=== PATIENT | female | born 1955 | race Caucasian/White ===

== ENCOUNTER → 2017-09-12 09:54 | Outpatient (CLI) | payer BC, SELFPAY ==
--- NOTE | 2017-09-12 09:59 | MM_ITS ---
MM Dig screening mamm BI w/CAD CAD Screening COMPARISON: Digital mammograms 08/06/2011 and 04/02/2014 INDICATION: There is a history of breast cancer patient maternal grandmother TECHNIQUE: Standard CC and MLO images were obtained. R2 CAD reviewed. FINDINGS: Prominent diffuse heterogenic fibroglandular densities are seen throughout both breasts somewhat lessening the sensitivity of mammography and the findings are bilateral and symmetrical. There are multiple benign-appearing calcifications in each breast many which appear to be typical of sclerosing adenosis. In addition there are multiple cutaneous calcifications as well there is no suspicious lesion and there are no suspicious microcalcifications. IMPRESSION: Stable dense and heterogenic parenchymal pattern with no suspicious lesion seen BI-RADS Category: 2 Benign Finding(s) RECOMMENDED FOLLOW-UP: 1YR - 1 YEAR FOLLOW-UP (A letter has been sent to the patient regarding results of the study.)
== END ==
PROVIDERS: Family Provider Nurse Practitioner Family; PCP Internal Medicine Adolescent Medicine; Visit Provider Nurse Practitioner Family
DX: Z12.31 Encounter for screening mammogram for malignant neoplasm of breast (principal)
CPT/HCPCS: 77067

== ENCOUNTER → 2017-09-23 11:07 | Outpatient (CLI) | payer BC, SELFPAY ==
--- NOTE | 2017-09-23 11:10 | XR_ITS ---
XR DEXA axial skeleton HISTORY: ITS.REASON: POST MENOPAUSAL ORDERING PHYSICIAN: Segun Villalobos MD PATIENT AGE: 62 years COMPARISON: None FINDINGS: The BMD measured at the left femoral neck is 1.004 g/cm squared with a T score of -0.2 . This is considered normal according to the World Health Organization criteria. Fracture risk is low. Recommend follow-up exam September 2019.. The L1-L4 density has a T score of 0.5 which is within normal limits. IMPRESSION: Normal bone density
== END ==
PROVIDERS: Family Provider Nurse Practitioner Family; PCP Internal Medicine Adolescent Medicine; Visit Provider Internal Medicine Adolescent Medicine
DX: Z78.0 Asymptomatic menopausal state (principal)
CPT/HCPCS: 77080

== ENCOUNTER → 2018-12-24 09:07 | Outpatient (CLI) | payer BC, SELFPAY ==
[2018-12-24 10:23] LABS: Alanine Aminotransferase 33 U/L (12-78); Albumin Level 3.7 gm/dL (3.4-5.0); Albumin/Globulin Ratio 1.2 (1.1-1.8); Alkaline Phosphatase 103 U/L (46-116); Anion Gap 11.6 mEq/L (5-15); Aspartate Amino Transferase 18 U/L (15-37); Bilirubin,Total 0.4 mg/dL (0.2-1.0); Blood Urea Nitrogen 18 mg/dL (7-18); Calcium 8.6 mg/dL (8.5-10.1); Carbon Dioxide 30 mmol/L (21.0-32.0); Chloride 106 mmol/L (98-107); Chol/HDL Ratio 3.2 (1-3.5); Cholesterol 142 mg/dL (140-200); Creatinine,Serum 0.71 mg/dL (0.55-1.02); Estimated Glomerular Filt Rate 83 ml/min (>60); GFR (African American) 101 ML/MIN (>60); Globulin 3.2 gm/dl (1.3-3.2); Glucose 88 mg/dL (74-106); HDL Cholesterol 45 mg/dL (29-89); LDL Cholesterol 84 mg/dL (0-130); Potassium 4.6 mmoL/L (3.5-5.1); Sodium 143 mmol/L (136-145); Total Protein,Serum 6.9 gm/dL (6.4-8.2); Triglycerides 63 mg/dL (30-200); VLDL Cholesterol 13 mg/dL (0-40)
== END ==
PROVIDERS: Visit Provider Nurse Practitioner Family
DX: Z00.00 Encounter for general adult medical examination without abnormal findings (principal); I10 Essential (primary) hypertension
CPT/HCPCS: 36415; 80053; 80061

== ENCOUNTER → 2019-01-19 16:43 | Outpatient (CLI) | payer BC, SELFPAY ==
--- NOTE | 2019-01-19 16:45 | MM_ITS ---
MM Dig screening mamm BI w/CAD CAD Screening COMPARISON: Digital mammograms with CAD 09/12/2017 and 04/02/2014 INDICATION: There is a history of breast cancer in patient's paternal grandmother TECHNIQUE: Standard CC and MLO images were obtained. R2 CAD reviewed. FINDINGS: Moderate diffuse fibro glandular densities are seen in central portions of both breast and the findings are bilateral and symmetrical. There are 2 mole markers left breast. There are scattered benign-appearing microcalcifications is in each breast. There is no suspicious lesion and there are no suspicious microcalcifications. IMPRESSION: Moderate breast density with no suspicious lesion seen BI-RADS Category: 2 Benign Finding(s) RECOMMENDED FOLLOW-UP: 1YR - 1 YEAR FOLLOW-UP (A letter has been sent to the patient regarding results of the study.)
== END ==
PROVIDERS: PCP Nurse Practitioner Family; Visit Provider Nurse Practitioner Family
DX: Z12.31 Encounter for screening mammogram for malignant neoplasm of breast (principal)
CPT/HCPCS: 77067

== ENCOUNTER → 2020-08-20 07:37 | Outpatient (CLI) | payer BC, SELFPAY ==
[2020-08-20 10:20] LABS: Alanine Aminotransferase 25 U/L (12-78); Albumin/Globulin Ratio 1.5 (1.1-1.8); Alkaline Phosphatase 84 U/L (38-126); Anion Gap 14.9 mEq/L (5-15); Aspartate Amino Transferase 33 U/L (14-36); Bilirubin,Total 0.8 mg/dl (0.2-1.3); Blood Urea Nitrogen 11 mg/dl (7-17); Carbon Dioxide 33 mmol/L (22.0-30.0); Chloride 99 mmol/L (98-107); Chol/HDL Ratio 2.9 (1-3.5); Cholesterol 164 mg/dl (140-200); Estimated Glomerular Filt Rate 72 ml/min (>60); GFR (African American) 87 ML/MIN (>60); Globulin 3.4 g/dL (1.3-3.2); Glucose 78 mg/dl (74-100); HDL Cholesterol 57 mg/dl (40-60); Potassium 3.9 mmoL/L (3.5-5.1); Sodium 143 mmol/L (136-145); Total Protein,Serum 8.4 g/dl (6.3-8.2); Triglycerides 85 mg/dl (30-150); VLDL Cholesterol 17 mg/dL (0-40)
[2020-08-20 10:31] LABS: Direct LDL Cholesterol 69.43 mg/dL (100-129)
== END ==
PROVIDERS: Visit Provider Nurse Practitioner Family
DX: I10 Essential (primary) hypertension (principal)
CPT/HCPCS: 36415; 80053; 80061

== ENCOUNTER → 2020-08-23 16:20 | Outpatient (CLI) | payer BC, SELFPAY ==
--- NOTE | 2020-08-23 16:24 | MM_ITS ---
PROCEDURE: MM DIG SCREENING MAMM BI W/CAD Referring Doctor: Josette Vega Patient Age:65Y CLINICAL INDICATION: SCREENING 65-year-old, no hormones, no new complaints Family history: Paternal grandmother; and niece with breast cancer COMPARISON: MG DIGMAMMS MAMMOGRAM SCREEN-ROVING CARRIER N/C from 09/13/2009 MG DMSB DIGITAL MAMM-SCREEN BILATERAL from 08/06/2011 MG DMSB DIG MAMM-SCREEN ADONAY from 04/02/2014 MG SCBI MM Dig screening mamm BI w/CAD from 09/12/2017 MG DIG MAMM-SCREEN ADONAY from 01/19/2019 TECHNIQUE: Patient difficult to position due to pectus excavatum Standard CC and MLO images were obtained. R2 CAD reviewed. Bilateral digital breast tomosynthesis included. Additional axillary CC views both breast included FINDINGS: Patient difficult to position due to pectus excavatum y moderate density breast with no new dominant or suspicious mass. There are numerous small punctate calcifications throughout both breast but these appear scattered and benign and can be followed. Tomosynthesis reveals no new areas of concern either. IMPRESSION: Stable bilateral mammogram with no new areas of concern. Moderate density breast. Bilateral follow-up 1 year recommended BI-RAD Category: 2 Benign Finding(s) FOLLOW-UP: 1YR 1 Year Follow-up (A letter has been sent to the patient regarding results of the stud Dictated by: Tony Ortiz MD 08/29/2020 11:50 Tony Ortiz MD in [place] 08/29/2020 11:50
== END ==
PROVIDERS: PCP Nurse Practitioner Family; Visit Provider Nurse Practitioner Family
DX: Z12.31 Encounter for screening mammogram for malignant neoplasm of breast (principal)
CPT/HCPCS: 77063; 77067

== ENCOUNTER → 2021-05-29 08:47 | Outpatient (CLI) | payer MEDICARE, BC, SELFPAY | PROVIDERS: Visit Provider Ophthalmology | DX: Z01.812 Encounter for preprocedural laboratory examination (principal); Z11.52 Encounter for screening for COVID-19 | CPT/HCPCS: C9803; U0003; U0005 ==

== ENCOUNTER 2021-05-30 08:09 | Day surgery (SDC) | payer MEDICARE, BC, SELFPAY ==
[2021-05-24 14:59] VITALS: BMI 22.2
[2021-05-30 08:57] VITALS: BP 160/89; PULSE 65; RESP 16; TEMP 36.6; O2SAT 100
[2021-05-30 10:39] VITALS: BP 163/81; PULSE 57; RESP 16; O2SAT 100
[2021-05-30 10:44] VITALS: BP 160/85; PULSE 54; RESP 16; O2SAT 100
[2021-05-30 10:49] VITALS: BP 148/78; PULSE 56; RESP 16; O2SAT 100
[2021-05-30 10:54] VITALS: BP 158/82; PULSE 57; RESP 16; O2SAT 100
[2021-05-30 10:55] VITALS: BP 148/91; PULSE 59; RESP 16; TEMP 36.3; O2SAT 100
== END 2021-05-30 11:10 | disposition home or self-care (01) ==
LOC: OR 08:12
PROVIDERS: PCP Nurse Practitioner Family; Visit Provider Ophthalmology
DX: H53.149 Visual discomfort, unspecified; H52.221 Regular astigmatism, right eye; H57.03 Miosis; I10 Essential (primary) hypertension; R00.2 Palpitations; Z88.0 Allergy status to penicillin; Z88.7 Allergy status to serum and vaccine; Z91.09 Other allergy status, other than to drugs and biological substances; Z79.82 Long term (current) use of aspirin; Z79.899 Other long term (current) drug therapy; H25.813 Combined forms of age-related cataract, bilateral
CPT/HCPCS: 66982; V2632

== ENCOUNTER → 2021-07-03 09:48 | Outpatient (CLI) | payer MEDICARE, BC, SELFPAY | PROVIDERS: Visit Provider Ophthalmology | DX: Z01.812 Encounter for preprocedural laboratory examination (principal); Z11.52 Encounter for screening for COVID-19 | CPT/HCPCS: C9803; U0003; U0005 ==

== ENCOUNTER 2021-07-04 08:20 | Day surgery (SDC) | payer MEDICARE, BC, SELFPAY ==
[2021-06-30 08:41] VITALS: BMI 21.4
[2021-07-04 08:34] VITALS: BP 174/97; PULSE 68; RESP 18; TEMP 36.7; O2SAT 99
[2021-07-04 10:28] VITALS: BP 141/80; PULSE 59; RESP 16; O2SAT 100
[2021-07-04 10:33] VITALS: BP 145/83; PULSE 59; RESP 16; O2SAT 100
[2021-07-04 10:38] VITALS: BP 148/79; PULSE 55; RESP 16; O2SAT 100
[2021-07-04 10:43] VITALS: BP 143/78; PULSE 57; RESP 16; O2SAT 100
[2021-07-04 10:45] VITALS: BP 139/84; PULSE 59; RESP 16; TEMP 36.2; O2SAT 100
== END 2021-07-04 10:55 | disposition home or self-care (01) ==
LOC: OR 08:21
PROVIDERS: PCP Nurse Practitioner Family; Visit Provider Ophthalmology
DX: H25.813 Combined forms of age-related cataract, bilateral (principal); H52.221 Regular astigmatism, right eye; F41.9 Anxiety disorder, unspecified; M19.90 Unspecified osteoarthritis, unspecified site; I10 Essential (primary) hypertension; Z88.0 Allergy status to penicillin; Z79.82 Long term (current) use of aspirin
CPT/HCPCS: 66984; V2632

== ENCOUNTER → 2021-09-01 09:39 | Outpatient (CLI) | payer MEDICARE, BC, SELFPAY ==
[2021-09-01 10:16] LABS: Basophils # 0.1 K/mm3 (0-0.2); Basophils % 1.6 % (0.1-2.0); Eosinophils # 0.2 K/mm3 (0.0-0.4); Eosinophils % 4.1 % (0.1-12.0); Hematocrit 41.6 % (37.0-47.0); Hemoglobin 13.4 g/dL (12.2-16.2); Lymphocytes # 1.5 K/mm3 (0.7-4.5); Mean Corpuscular HGB Conc 32.1 g/dL (31.8-35.4); Mean Corpuscular Volume 96.6 fl (81-99); Monocytes # 0.2 K/mm3 (0.1-1.0); Monocytes % 4.5 % (1.7-9.3); Neutrophils # 2.9 K/mm3 (1.8-7.8); Neutrophils % 58.9 % (37.0-80.0); Platelet Count 189 K/mm3 (142-424); Red Blood Count 4.31 M/mm3 (4.20-5.40); Red Cell Distribution Width 13.6 % (11.5-17.5); White Blood Count 4.9 K/mm3 (4.8-10.8)
[2021-09-01 11:23] LABS: Alanine Aminotransferase 19 U/L (12-78); Albumin Level 4.5 g/dl (3.5-5.0); Albumin/Globulin Ratio 1.7 (1.1-1.8); Alkaline Phosphatase 74 U/L (38-126); Anion Gap 10.8 mEq/L (5-15); Aspartate Amino Transferase 29 U/L (14-36); Bilirubin,Total 0.6 mg/dl (0.2-1.3); Blood Urea Nitrogen 15 mg/dl (7-17); Calcium 8.9 mg/dl (8.4-10.2); Carbon Dioxide 30 mmol/L (22.0-30.0); Chloride 105 mmol/L (98-107); Chol/HDL Ratio 2.9 (1-3.5); Cholesterol 136 mg/dl (140-200); Estimated Glomerular Filt Rate 100 ml/min (>60); GFR (African American) 121 ML/MIN (>60); Globulin 2.7 g/dL (1.3-3.2); Glucose 78 mg/dl (74-100); HDL Cholesterol 47 mg/dl (40-60); Potassium 3.8 mmoL/L (3.5-5.1); Sodium 142 mmol/L (136-145); Total Protein,Serum 7.2 g/dl (6.3-8.2); Triglycerides 68 mg/dl (30-150); VLDL Cholesterol 14 mg/dL (0-40)
[2021-09-01 11:35] LABS: Direct LDL Cholesterol 65.44 mg/dL (100-129)
== END ==
PROVIDERS: PCP Nurse Practitioner Family; Visit Provider Nurse Practitioner Family
DX: R06.02 Shortness of breath (principal); I10 Essential (primary) hypertension
CPT/HCPCS: 36415; 80053; 80061; 85025

== ENCOUNTER → 2021-09-05 15:17 | Outpatient (CLI) | payer MEDICARE, BC, SELFPAY ==
--- NOTE | 2021-09-05 15:26 | MM_ITS ---
PROCEDURE INFORMATION: Exam: MG Bilateral Screening 3D Mammography Exam date and time: 09/05/2021 3:26 PM Age: 66 years old Clinical indication: Screening mammogram TECHNIQUE: Imaging protocol: Bilateral Screening tomosynthesis and 2D mammography including computer-aided detection (CAD) when performed. COMPARISON: 1. MG MM DIG SCREENING MAMM BI W/CAD 08/23/2020 4:26 PM 2. MG DIG MAMM-SCREEN ADONAY 01/19/2019 4:59 PM 3. MG SCBI MM Dig screening mamm BI w/CAD 09/12/2017 10:05 AM 4. MG DMSB DIG MAMM-SCREEN ADONAY 04/02/2014 10:18 AM FINDINGS: MAMMOGRAPHY: Breast composition: The breast tissue is heterogeneously dense, which may obscure small masses. Mass: None. Architectural distortion: No new or suspicious architectural distortion. Calcifications: Stable benign-appearing calcifications are present. No new or suspicious cluster of microcalcifications have developed. Asymmetric density: No new or suspicious asymmetric density is present Skin thickening: None. Axillary adenopathy: None. IMPRESSION: No mammographic evidence of malignancy. Recommend annual screening mammography unless otherwise clinically indicated. ASSESSMENT: BI-RADS category 2: Benign
== END ==
PROVIDERS: PCP Nurse Practitioner Family; Visit Provider Nurse Practitioner Family
DX: Z12.31 Encounter for screening mammogram for malignant neoplasm of breast (principal)
CPT/HCPCS: 77063; 77067

== ENCOUNTER → 2021-09-11 11:31 | Outpatient (CLI) | payer MEDICARE, BC, SELFPAY ==
--- NOTE | 2021-09-11 | CA_ITS ---
APPROVED REPORT Exam: Pharmacologic Technologist: Jocelyn Sandoval, Ht: 5 ft 7 in Wt: 138 lbs BSA: 1.73 m2 HR: 74 bpm BP: 178/85 mmHg Medical History Medications: Aspirin,,,,, HCTZ,,,,, Flonase,,,,, MeLOXICAM,,,,, MiraLAX,,,,, Stress Test Details Test: LEXISCAN HR Resting HR: 77 bpm Max Heart Rate (APMHR): 155.014874 bpm Max HR Achieved: 99 bpm Target HR (85% APMHR): 131.849814 bpm % of APMHR: 63.87 Recovery HR: 80 bpm BP Resting BP: 178/85 mmHg Max BP: 178/85 mmHg Recovery BP: 172.0/96.0 mmHg ECG Resting ECG: NSR, NSSTTW Abnormalitie Inf. Lat. Clinical Reason for Termination: Completed Protocol Exercise duration: 04:05 min Highest Stage Achieved: Stress ECG Conclusion Symptoms: None Arrhythmias/Ectopy: None ST-T Changes: <1.5mm ST Segment changes Inf. lat. Conclusion: Non-Diagnostic Electronically signed by : José Miguel Diaz MD 09/11/2021 15:46:21
--- NOTE | 2021-09-11 11:39 | NM_ITS ---
APPROVED REPORT Exam: Nuclear Stress Test Indication: HTN, FM HX., C.P., SOB, PALPITATIONS, SYNCOPE, FATIGUE Patient Location: Outpatient Stress Tech: Kaylen Saxena [place] Tech:Malena Davison, ARRT, RT (R)(N) Ht: 5 ft 7 in Wt: 139 lbs Bra Size: B HR: 77 bpm BP: 178/85 mmHg BSA: 1.73 m2 BMI: 21.7 History: HTN, FM HX., C.P., SOB, PALPITATIONS, SYNCOPE, FATIGUE Procedure: Patient received a 0.4 mg of intravenous Lexiscan, resting heart rate 77 bpm, resting blood pressure 178/85 mmHg, with Lexiscan maximum heart rate achived was 97 bpm which is Less than 85 % of the maximum predicted heart rate and blood pressure was 174/97 mmHg. With Lexiscan, patient denied any complaint of chest pain. Electrocardiogram Resting electrocardiogram shows sinus rhythm nonspecific ST-T changes, with Lexiscan there is less than 1.[address] segment depression noted from the baseline EKG. The EKG portion of the Lexiscan is nondiagnostic. Cardiac Stress and Resting SPECT Images: Cardiac Stress and Resting SPECT images were obtained using technetium 99m Myoview 30.5 mCi stress and 10.95 mCi at rest. Gated SPECT for analysis of segmental wall motion and calculation of the ejection fraction also done. Cardiac stress and rest SPECT images show uniform myocardial activity without segmental perfusion abnormality, computer derived ejection fraction is 60% with no regional wall motion abnormality, right ventricle is normal size and contractility. Conclusion: 1. The EKG portion of the Lexiscan is nondiagnostic. 2. No scintigraphic evidence of reversible ischemia seen, computer derived ejection fraction is 60% with no regional wall motion abnormality, right ventricle is normal size and contractility. 3. Normal Lexiscan Myoview study. Electronically signed by : José Miguel Diaz MD 09/11/2021 16:17:45
--- NOTE | 2021-09-11 13:56 | HMH.ITSHM ---
Current Home Medications as stated by this patient Inez Sharp or shared services representative. []MIRALAX HCTZ MELOXICAM NASAL SPRAY ASA
== END ==
PROVIDERS: PCP Nurse Practitioner Family; Visit Provider Nurse Practitioner Family
DX: R06.02 Shortness of breath (principal); R07.9 Chest pain, unspecified
CPT/HCPCS: 78452; 93017; A9502; J2785

== ENCOUNTER 2022-02-10 15:27 | Emergency (ER) | payer MEDICARE, BC, SELFPAY ==
[2022-02-10 15:28] VITALS: BP 132/84; PULSE 68; RESP 16; TEMP 36.8; O2SAT 99; BMI 22.1
[2022-02-10 15:45] VITALS: BP 132/84; PULSE 68; RESP 16; TEMP 36.8; O2SAT 99; BMI 22.0
--- NOTE | 2022-02-10 16:24 | HMH.EDUTC ---
[facility] Disposition Clinical Impression: Laceration Disposition: Home, Self-Care Condition on Discharge: Good Instructions: DI for Laceration Repair -- Simple, DI for Laceration Repair -- Finger Additional Instructions: return in 10-14 days for suture removal antibiotics as ordered keep area clean and dry do not wash dishes watch for s/s of infection if any symptoms return or be seen in ed Prescriptions: cephALEXin [Cephalexin 500mg Tab] 500 mg PO BID 7 Days #14 tab Prescription Printed Referrals: Josette Vega APRN [Primary Care Provider] - Time of Disposition: 16:38 Medical Decision Making - Carlos Inquiry Pt receiving controlled substance: No Vital Signs: 02/10/22 15:28 02/10/22 15:45 Temperature 98.3 F 98.3 F Temperature Source Oral Oral Pulse Rate [Right Radial] 68 68 Respiratory Rate 16 16 Blood Pressure [Right Arm] 132/84 132/84 Blood Pressure Mean [Right Arm] 100 100 Blood Pressure Source [Right Arm] Automatic Cuff Automatic Cuff Blood Pressure Position [Right Arm] Supine Sitting 02 Sat by Pulse Oximetry 99 99 Oxygen Delivery Method Room Air Room Air [facility] [place] HPI - General Chief complaint: Urgent Treatment Center Stated complaint: [id number]/10/22Lac to L pinky finger Time Seen by Provider: 02/10/22 16:24 Mode of Arrival: Ambulatory Source of Information: Patient Limitations: No Limitations Description of Symptoms (Recalled from Triage Doc. by RN): PATIENT C/O LACERATION TO LEFT PINKY WHILE WASHING DISHES TODAY. PATIENT REPORTS AN ALLERGY TO TETANUS HEENT Symptoms (Recalled from RN notes): No Resp Symptoms (Recalled from RN notes): No Skin Symptoms (Recalled from RN notes): Yes MS Symptoms (Recalled from RN notes): No Functional Status (Recalled from RN notes): WNL - History of Present Illness Provider Complaint: 66 yr old female presents for laceration to left pinky. pt states she was washing dishes and a cup broke and cut her finger - Related Data Home Medications Medication Instructions Recorded Confirmed Aspirin [Aspir 81] 81 mg PO DAILY 11/12/17 07/04/21 Fluticasone Propionate [Flonase 2 spr NS DAILY 11/12/17 07/04/21 50mcg nasal spray 16gm] Meloxicam 15 mg PO DAILY 11/12/17 07/04/21 hydroCHLOROthiazide 12.5 mg PO DAILY 11/12/17 07/04/21 [Hydrochlorothiazide 12.5mg Tab] Mv,Calcium,Min/Iron/Folic/Vitk 1 each PO DAILY 05/24/21 07/04/21 [Multi For Her Tablet] polyethylene glycoL 3350 [Miralax 17 gm PO DAILY 05/24/21 07/04/21 17gm Packet] Previous Rx's Medication Instructions Recorded cephALEXin [Cephalexin 500mg Tab] 500 mg PO BID 7 Days #14 tab 02/10/22 Allergies Allergy/AdvReac Type Severity Reaction Status Date / Time Tetanus Vaccines and Toxoid Allergy Intermediate Hives Verified 07/04/21 08:31 Penicillins Allergy Mild Hives Verified 07/04/21 08:31 horse serum Allergy Mild Hives Uncoded 11/12/17 12:54 - Worker's Comp Is this a Worker's Comp case?: No [facility] History - Hepatitis A Screen Attestation statement:: This patient has been screened for Hepatitis A risk factors. I have reviewed the patient's past medical history: Yes Medical History: Reports:: Hypertension, Palpitations Denies:: Cancer, Diabetes Mellitus Type 1, Diabetes Mellitus Type 2, Internal Pacemaker, Lung Disease, MRSA, Seizures Other Surgeries: Yes: Colonoscopy. No: Pacemaker Amputation: No Fractures: No - Social History Smoking Status: Never smoker Alcohol Intake: current Alcohol Intake Frequency:: a few times a month Occupational Status: retired Housing: house Household Members: spouse Family Hx:: Cancer, Stroke ROS Obtained: Yes Systems reviewed as appropriate & no additional complaints - Constitutional Constitutional: Reports system reviewed and no additional complaints, except as docu, Denies fever(s) - Eyes Eyes: Reports system reviewed and no additional complaints, except as docu, Denies dry eyes - ENT Ears, Nose, Mouth, and Throat: Reports system revie
[2022-02-10 16:40] VITALS: BP 132/84; PULSE 68; RESP 16; TEMP 36.8; O2SAT 99
== END 2022-02-10 16:44 | disposition home or self-care (01) ==
PROVIDERS: Emergency Provider Nurse Practitioner Family; PCP Nurse Practitioner Family
DX: S61.217A Laceration without foreign body of left little finger without damage to nail, initial encounter (principal); W25.XXXA Contact with sharp glass, initial encounter; Y93.G1 Activity, food preparation and clean up; Y92.010 Kitchen of single-family (private) house as the place of occurrence of the external cause
CPT/HCPCS: 12001; 99213; G0463

== ENCOUNTER → 2022-09-11 07:19 | Outpatient (CLI) | payer MEDICARE, BC, SELFPAY ==
[2022-09-11 08:03] LABS: Basophils # 0.1 K/mm3 (0-0.2); Basophils % 1.3 % (0.1-2.0); Eosinophils # 0.3 K/mm3 (0.0-0.4); Eosinophils % 7.8 % (0.1-12.0); Hematocrit 42.2 % (37.0-47.0); Hemoglobin 13.4 g/dL (12.2-16.2); Lymphocytes # 1.3 K/mm3 (0.7-4.5); Lymphocytes % 35.4 % (10-50); Mean Corpuscular HGB Conc 31.8 g/dL (31.8-35.4); Mean Corpuscular Hemoglobin 30.3 pg (27.0-31.2); Mean Corpuscular Volume 95.1 fl (81-99); Mean Platelet Volume 9.7 fl (7.4-10.4); Monocytes # 0.2 K/mm3 (0.1-1.0); Monocytes % 6.4 % (1.7-9.3); Neutrophils # 1.8 K/mm3 (1.8-7.8); Neutrophils % 49.1 % (37.0-80.0); Platelet Count 174 K/mm3 (142-424); Red Blood Count 4.44 M/mm3 (4.20-5.40); Red Cell Distribution Width 13.5 % (11.5-17.5); White Blood Count 3.6 K/mm3 (4.8-10.8)
[2022-09-11 08:40] LABS: Alanine Aminotransferase 27 U/L (12-78); Albumin/Globulin Ratio 1.4 (1.1-1.8); Alkaline Phosphatase 84 U/L (38-126); Aspartate Amino Transferase 35 U/L (14-36); Bilirubin,Total 0.5 mg/dl (0.2-1.3); Blood Urea Nitrogen 15 mg/dl (7-17); Calcium 8.7 mg/dl (8.4-10.2); Carbon Dioxide 32 mmol/L (22.0-30.0); Chloride 107 mmol/L (98-107); Chol/HDL Ratio 3.2 (1-3.5); Cholesterol 133 mg/dl (140-200); Estimated Glomerular Filt Rate 84 ml/min (>60); GFR (African American) 101 ML/MIN (>60); Globulin 2.9 g/dL (1.3-3.2); Glucose 81 mg/dl (74-100); HDL Cholesterol 42 mg/dl (40-60); Sodium 139 mmol/L (136-145); Total Protein,Serum 6.9 g/dl (6.3-8.2); Triglycerides 82 mg/dl (30-150); VLDL Cholesterol 16 mg/dL (0-40)
[2022-09-11 08:51] LABS: Direct LDL Cholesterol 63.52 mg/dL (100-129)
== END ==
PROVIDERS: PCP Nurse Practitioner Family; Visit Provider Nurse Practitioner Family
DX: I10 Essential (primary) hypertension (principal)
CPT/HCPCS: 36415; 80053; 80061; 85025

== ENCOUNTER → 2022-09-26 08:04 | Outpatient (CLI) | payer MEDICARE, BC, SELFPAY ==
--- NOTE | 2022-09-26 08:22 | MM_ITS ---
PROCEDURE INFORMATION: Exam: MG Bilateral Screening 3D Mammography Exam date and time: 09/26/2022 8:21 AM Age: 67 years old Clinical indication: Screening examination. Paternal aunt and niece had breast cancer. TECHNIQUE: Imaging protocol: Bilateral Screening tomosynthesis and 2D mammography including computer-aided detection (CAD) when performed. COMPARISON: 1. MG MM DIG SCREENING MAMM BI W/CAD 09/05/2021 3:49 PM 2. MG MM DIG SCREENING MAMM BI W/CAD 08/23/2020 4:26 PM 3. MG DIG MAMM-SCREEN ADONAY 01/19/2019 4:59 PM 4. MG SCBI MM Dig screening mamm BI w/CAD 09/12/2017 10:05 AM FINDINGS: MAMMOGRAPHY: Breast composition: The breasts are heterogeneously dense, which may obscure small masses. Mass: None. Architectural distortion: None. Calcifications: No suspicious calcifications. Asymmetric density: None. Skin thickening: None. Axillary adenopathy: None. IMPRESSION: No mammographic evidence of malignancy. Annual screening is recommended unless otherwise clinically indicated. ASSESSMENT: BI-RADS Category 1: Negative
--- NOTE | 2022-09-26 08:23 | XR_ITS ---
FINAL REPORT TECHNIQUE: Bone densitometry calculations of the lumbar spine and left hip were obtained. CLINICAL HISTORY: post karen FINDINGS: DEXA BONE DENSITY AXIAL SKELETON Using L1-4, the bone mineral density of the spine is 1.079 g/cm2, corresponding to T-score of 0.3. Using the left hip, the bone mineral density of the total hip is 0.881 g/cm2, corresponding to a T-score of -0.5. NOTE: T-score: Standard deviation compared with peak bone mass of young adult mean. *Following the recommendations of the International Society of Bone densitometry, classification of hip BMD is based on the lower of two T-scores; total hip or femoral neck. IMPRESSION: Normal bone mineral density of the lumbar spine and left hip. Reviewed, Interpreted and Dictated by Naveen Hunt III, MD Transcribed by Danika Amor Authenticated and [facility]
== END ==
PROVIDERS: PCP Nurse Practitioner Family; Visit Provider Nurse Practitioner Family
DX: Z12.31 Encounter for screening mammogram for malignant neoplasm of breast (principal); Z13.820 Encounter for screening for osteoporosis; Z78.0 Asymptomatic menopausal state
CPT/HCPCS: 77063; 77067; 77080

== ENCOUNTER → 2022-11-27 08:25 | Outpatient (POV) | payer MEDICARE, BC, SELFPAY | PROVIDERS: Visit Provider Dermatology | DX: Z00.00 Encounter for general adult medical examination without abnormal findings (principal) ==

== ENCOUNTER 2023-09-10 07:00 | Outpatient (CLI) | payer MEDICARE, BC, SELFPAY ==
[2023-09-10 07:35] LABS: Basophils % 0.7 % (0.1-2.0); Eosinophils # 0.2 K/mm3 (0.0-0.4); Eosinophils % 4.7 % (0.1-12.0); Hematocrit 41.2 % (37.0-47.0); Hemoglobin 13.4 g/dL (12.2-16.2); Lymphocytes # 1.4 K/mm3 (0.7-4.5); Lymphocytes % 29.8 % (10-50); Mean Corpuscular HGB Conc 32.6 g/dL (31.8-35.4); Mean Corpuscular Volume 95.2 fl (81-99); Monocytes # 0.3 K/mm3 (0.1-1.0); Monocytes % 7.1 % (1.7-9.3); Neutrophils # 2.7 K/mm3 (1.8-7.8); Neutrophils % 57.5 % (37.0-80.0); Platelet Count 177 K/mm3 (142-424); Red Blood Count 4.33 M/mm3 (4.20-5.40); Red Cell Distribution Width 13.6 % (11.5-17.5); White Blood Count 4.7 K/mm3 (4.8-10.8)
[2023-09-10 07:45] LABS: Chloride 105 mmol/L (98-107); Potassium 3.7 mmoL/L (3.5-5.1); Sodium 142 mmol/L (136-145)
[2023-09-10 07:47] LABS: Alanine Aminotransferase 21 U/L (12-78); Aspartate Amino Transferase 27 U/L (14-36); Bilirubin,Total 0.6 mg/dl (0.2-1.3); Blood Urea Nitrogen 10 mg/dl (7-17); Estimated Glomerular Filt Rate 72 ml/min (>60); GFR (African American) 87 ML/MIN (>60)
[2023-09-10 07:48] LABS: Albumin Level 4.3 g/dl (3.5-5.0); Albumin/Globulin Ratio 1.5 (1.1-1.8); Alkaline Phosphatase 99 U/L (38-126); Anion Gap 4.7 mEq/L (5-15); Calcium 9.1 mg/dl (8.4-10.2); Carbon Dioxide 36 mmol/L (22.0-30.0); Chol/HDL Ratio 3.5 (1-3.5); Cholesterol 159 mg/dl (140-200); Globulin 2.8 g/dL (1.3-3.2); Glucose 84 mg/dl (74-100); HDL Cholesterol 46 mg/dl (40-60); Total Protein,Serum 7.1 g/dl (6.3-8.2); Triglycerides 81 mg/dl (30-150); VLDL Cholesterol 16 mg/dL (0-40)
[2023-09-10 08:00] LABS: Direct LDL Cholesterol 75.53 mg/dL (100-129)
== END 2023-09-10 23:59 ==
LOC: LAB 07:02
PROVIDERS: Nurse Practitioner Family; PCP Internal Medicine Adolescent Medicine; Visit Provider Internal Medicine Adolescent Medicine
DX: I10 Essential (primary) hypertension (principal); M15.0 Primary generalized (osteo)arthritis
CPT/HCPCS: 36415; 80053; 80061; 85025

== ENCOUNTER 2023-10-01 10:46 | Outpatient (CLI) | payer MEDICARE, BC, SELFPAY ==
--- NOTE | 2023-10-01 10:53 | MM_ITS ---
PROCEDURE INFORMATION: Exam: MG Bilateral Screening 3D Mammography Exam date and time: 10/01/2023 10:43 AM Age: 68 years old Clinical indication: Screening mammogram TECHNIQUE: Imaging protocol: Bilateral Screening tomosynthesis and 2D mammography including computer-aided detection (CAD) when performed. COMPARISON: 1. MG MM DIG SCREENING MAMM BI W/CAD 09/26/2022 8:21 AM 2. MG MM DIG SCREENING MAMM BI W/CAD 09/05/2021 3:49 PM 3. MG MM DIG SCREENING MAMM BI W/CAD 08/23/2020 4:26 PM 4. MG DIG MAMM-SCREEN ADONAY 01/19/2019 4:59 PM FINDINGS: MAMMOGRAPHY: Breast composition: The breast is heterogeneously dense, which may obscure small masses. Mass: None. Architectural distortion: No new or suspicious architectural distortion. Calcifications: Stable benign-appearing calcifications are present. No new or suspicious cluster of microcalcifications have developed. Asymmetric density: No new or suspicious asymmetric density is present Skin thickening: None. Axillary adenopathy: None. IMPRESSION: No mammographic evidence of malignancy. Recommend annual screening mammography unless otherwise clinically indicated. ASSESSMENT: BI-RADS category 2: Benign.
== END 2023-10-01 23:59 ==
PROVIDERS: PCP Nurse Practitioner Family; Visit Provider Nurse Practitioner Family
DX: Z12.31 Encounter for screening mammogram for malignant neoplasm of breast (principal)
CPT/HCPCS: 77063; 77067

== ENCOUNTER 2024-10-28 07:52 | Outpatient (CLI) | payer MEDICARE, BC, SELFPAY ==
--- NOTE | 2024-10-28 07:55 | MM_ITS ---
PROCEDURE INFORMATION: Exam: MG Bilateral Screening 3D Mammography Exam date and time: 10/28/2024 8:09 AM Age: 69 years old Clinical indication: Screening examination TECHNIQUE: Imaging protocol: Bilateral Screening tomosynthesis and 2D mammography including computer-aided detection (CAD) when performed. Per the technologist the best possible images were obtained as the patient had difficulty with positioning. The exam is degraded by lack of posteroinferior tissue on both MLO views. COMPARISON: 1. MG MM DIG SCREENING MAMM BI W/CAD 10/01/2023 10:43 AM 2. MG MM DIG SCREENING MAMM BI W/CAD 09/26/2022 8:21 AM FINDINGS: MAMMOGRAPHY: Breast composition: The breasts are heterogeneously dense, which may obscure small masses. Mass: No suspicious masses. Architectural distortion: None. Calcifications: No suspicious calcifications. Asymmetric density: None. Skin thickening: None. Axillary adenopathy: None. IMPRESSION: No mammographic evidence of malignancy. Annual screening is recommended unless otherwise clinically indicated. ASSESSMENT: BI-RADS Category 1: Negative.
== END 2024-10-28 23:59 | disposition home or self-care (01) ==
LOC: RAD 07:54
PROVIDERS: PCP Nurse Practitioner Family; Visit Provider Nurse Practitioner Family
DX: Z12.31 Encounter for screening mammogram for malignant neoplasm of breast (principal)
CPT/HCPCS: 77063; 77067